=== PATIENT | female | born 2005 | race Caucasian/White ===

== ENCOUNTER 2023-02-10 17:49 | Emergency (ER) | payer SELFPAY ==
[2023-02-10 17:55] VITALS: BP 107/68; PULSE 109; TEMP 37.1; O2SAT 96; BMI 19.0
[2023-02-10 18:48] LABS: Basophils % 0.3 %; Eosinophils % 0.3 %; Hematocrit 34.7 % (36-47); Lymphocytes % 33.8 %; Mean Corpuscular HGB Conc 35.4 g/dL (30-55); Mean Corpuscular Hemoglobin 36.5 pg (27-33); Mean Platelet Volume 9.5 fL (7.4-10.4); Monocytes % 8.7 %; Neutrophils % 56.2 %; Nucleated Red Blood Cells % 0 %; Platelet Count 270 10^3/cmm (157-399); Red Blood Count 3.37 10^6/uL (3.85-5.65); Red Cell Distribution Width 21.2 % (12.1-15.1); White Blood Count 11.76 10^3/uL (4.5-13.0)
[2023-02-10 19:11] LABS: HCG, Serum Qual Negative (Negative)
[2023-02-10 19:17] LABS: Alanine Aminotransferase 156 U/L (0-33); Albumin Level 4.5 g/dL (3.5-5.2); Alkaline Phosphatase 144 U/L (35-105); Anion Gap 18.1 (5-19); Aspartate Amino Transferase 129 U/L (0-32); Blood Urea Nitrogen 14 mg/dL (6-20); Calcium 9.3 mg/dL (8.5-10.5); Carbon Dioxide 25 mmol/L (22-29); Chloride 99 mmol/L (98-107); Creatinine Clr Calc Pharmacy 124.5211; Globulin 3.6 g/dL (1.3-4.6); Glomerular Filtration Rate 107.8 mL/min (90-130); Glucose 114 mg/dL (65-115); Lipase 33 U/L (13-60); Osmolality Calculated 287 mOsm/kg (285-295); Potassium 4.1 mmol/L (3.5-5.1); Sodium 138 mmol/L (136-145); Total Bilirubin 1.3 mg/dL (0.15-1.2); Total Protein 8.1 g/dL (6.6-8.7)
--- NOTE | 2023-02-10 19:59 | W.ED.FEMALGU ---
HPI - Female Genitourinary General: Chief complaint: Urogenital-Female Stated complaint: urine orange/ pain, N/V Time Seen by Provider: 02/10/23 19:44 Source: patient Mode of arrival: ambulatory Limitations: no limitations History of Present Illness: 17-year-old female states over the last 4 to 5 days she been having some lower abdominal pain that has been sharp in nature she is also had dysuria along with discolored urine. She denies any fevers denies any upper abdominal pain. She denies diarrhea or vomiting. Associated symptoms: Reports abdominal pain; Deny headache(s) or nausea Review of Systems Const: Denies: fever(s), chills, body aches or change in appetite ENMT: Denies: throat pain or dental pain Card: Denies: chest pain Resp: Denies: dyspnea GI: Reports: abdominal pain; Denies: nausea, vomiting or diarrhea : Reports: dysuria Musc: Denies: neck pain or back pain Skin/Breast: Denies: rash Neuro: Denies: headache(s) Physical Exam Const: COMMON NORMALS: no acute distress, patient oriented x3 and healthy appearing HENMT: COMMON NORMALS: normocephalic and atraumatic HEAD & SCALP: normocephalic and atraumatic Eye: COMMON NORMALS: conjunctivae normal CONJUNCTIVA: Yes conjunctivae normal Neck/C-Spine: COMMON NORMALS: full ROM and supple Chest: COMMONS NORMALS: normal inspection of the chest Resp: COMMON NORMALS: normal respiratory effort Cardio: COMMON NORMALS: regular rate, regular rhythm and No murmurs present (Cardio) RATE: regular rate RHYTHM: regular rhythm GI: COMMON NORMALS: Normal to inspection, nondistended, normoactive bowel sounds present, Soft to palpation, non-tender and no masses PALPATION: Yes Soft to palpation Extremity: COMMON NORMALS: normal to inspection and full ROM Neuro: COMMON NORMALS: patient oriented x3, moves all extremities and no focal motor deficits Psych: COMMON NORMALS: mental status grossly normal, Normal thought process present and cooperative THOUGHT PROCESS: Normal thought process present Skin: COMMON NORMALS: no rashes or lesions noted and no wounds GENERAL SKIN EXAM: no rashes or lesions noted Course Vital Signs: Vital signs: Vital Signs Temperature 98.7 F 02/10/23 17:55 Pulse Rate 87 02/10/23 21:38 Blood Pressure 121/76 02/10/23 21:38 Pulse Oximetry 96 02/10/23 21:38 Oxygen Delivery Me thod Room Air 02/10/23 21:38 MDM - Female Medical Decision Making Patient presents here with lower abdominal pain dysuria likely UTI she has no signs of PID or appendicitis. Patient's white count here is normal she is nontoxic-appearing we will start her on antibiotics she is follow-up PCP and return if worsening. Medical Records I reviewed the patient's medical records. Lab Data I reviewed the patient's lab results. 02/10/23 18:23 02/10/23 18:23 Radiology Impressions Abdomen/Pelvis CT 02/10/23 20:25 IMPRESSION: No acute abnormality identified to explain patient's pain. In particular, a normal appendix is confirmed and there is no urolithiasis or bowel obstruction. COMMENTS: Consistent with the [place] [employer]'s Incidental Findings Committee white paper (J Am Shayla Radiol 2018): Any incidental renal lesion less than 1 cm or classified as too small to characterize, or any incidental cystic renal lesion characterized as simple-appearing, is likely benign. No follow-up imaging is recommended for these lesions per consensus recommendations based on imaging criteria. Laboratory Results WBC 11.76 10^3/uL (4.5-13.0) 02/10/23 18: RBC 3.37 10^6/uL (3.85-5.65) L 02/10/23 18:23 Hgb 12.30 g/dL (12.4-14.8) L 02/10/23 18: Hct 34.7 % (36-47) L 02/10/23 18: MCV 103.0 fl (85-98) H 02/10/23 18: MCH 36.5 pg (27-33) H 02/10/23 18: MCHC 35.4 g/dL (30-55) 02/10/23 18: RDW 21.2 % (12.1-15.1) H 02/10/23 18: Plt Count 270 10^3/cmm (157-399) 02/10/23 18: MPV 9.5 fL (7.4-10.4) 02/10/23 18: Neut % (Auto) 56.2 % 02/10/23 18:23 Lymph % (Auto) 33.8 % 02/10/23 18:23 [place] % (Auto) 8.7 % 02/10/23 18: Eos % (Auto) 0.3 % 02/10/23 18: Baso % (Auto) 0.3 % 02/10/23 18: Neut # (Auto) 6.60 10^3/uL (1.8-8.0) 02/10/23 18: Lymph # (Auto) 4.0 10^3/uL (1.5-6.5) 02/10/23 18: [place] # (Auto) 1.0 10^3/uL (0.2-0.9) H 02/10/23 18: Eos # (Auto) 0.0 10^3/uL (0.0-0.8) 02/10/23 18: Baso # (Auto) 0.0 10^3/uL (0.0-0.1) 02/10/23 18: Nucleated RBC % (auto) 0 % 02/10/23 18: Nucleated RBCs # 0.0 /100WBC 02/10/23 18:23 Sodium 138 mmol/L (136-145) 02/10/23 18: Potassium 4.1 mmol/L (3.5-5.1) 02/10/23 18: Chloride 99 mmol/L (98-107) 02/10/23 18: Carbon Dioxide 25 mmol/L (22-29) 02/10/23 18: Anion Gap 18.1 (5-19) 02/10/23 18: BUN 14 mg/dL (6-20) 02/10/23 18:23 Creatinine 0.7 mg/dL (0.5-0.9) 02/10/23 18:23 GFR Calculation 107.8 mL/min (90-130) 02/10/23 18: Glucose 114 mg/dL (65-115) 02/10/23 18:23 Calculated Osmolality 287 mOsm/kg (285-295) 02/10/23 18:23 Calcium 9.3 mg/dL (8.5-10.5) 02/10/23 18:23 Total Bilirubin 1.3 mg/dL (0.15-1.2) H 02/10/23 18:23 AST 129 U/L (0-32) H 02/10/23 18:23 ALT 156 U/L (0-33) H 02/10/23 18:23 Alkaline Phosphatase 144 U/L (35-105) H 02/10/23 18:23 Total Protein 8.1 g/dL (6.6-8.7) 02/10/23 18: Albumin 4.5 g/dL (3.5-5.2) 02/10/23 18: Globulin 3.6 g/dL (1.3-4.6) 02/10/23 18: Lipase 33 U/L (13-60) 02/10/23 18:23 HCG, Qual Negative (Negative) 02/10/23 18:23 Urine Color [place] (Yellow) 02/10/23 19:52 Urine Appearance Cloudy (CLEAR) A 02/10/23 19:52 Urine pH 8 (5-7) H 02/10/23 19:52 Ur Specific [place] 1.015 (1.005-1.030) 02/10/23 19:52 Urine Protein 1+ (Negative) H 02/10/23 19:52 Urine Glucose (UA) Norm (Normal) 02/10/23 19:52 Urine Ketones Negative (Negative) 02/10/23 19:52 Urine Blood 3+ (Negative) H 02/10/23 19:52 Urine Nitrate Negative (Negative) 02/10/23 19:52 Urine Bilirubin 1+ (Negative) H 02/10/23 19:52 Prot Sulfosalicylic Acd Positive (Negative) 02/10/23 19:52 Urine Urobilinogen 4+ mg/dL (Negative) H 02/10/23 19:52 Ur Leukocyte Esterase 2+ (Negative) H 02/10/23 19:52 Urine RBC Too numerous to cnt /hpf (0-2) H 02/10/23 19:52 Urine WBC 55-80 /hpf (0-5) H 02/10/23 19:52 Ur Squamous Epith Cells 0-4 /hpf (0-5) H 02/10/23 19:52 Amorphous Sediment 3+ /hpf 02/10/23 19:52 Urine Bacteria 1+ /hpf (NONE) H 02/10/23 19:52 All radiology interpretation(s) finalized by discharge Discharge Plan Discharge Patient Disposition: Home Clinical Impression: Urinary tract infection Qualifiers: Urinary tract infection type: site unspecified Condition: Stable Prescriptions: New cephalexin 500 mg capsule 500 mg PO TID 7 Days Qty: 21 0RF Discharge Orders: Discharge ED (Routine); Ordered 02/10/23 Ordered By: Norbert Infante Referrals: Bernard Kennedy FNP [Primary Care Provider] - Discharge Diet: Advance as tolerated Discharge Activity: Resume usual activity Patient Instructions: Urinary Tract Infection in Women (ED) Coding Level of Care Code ED Operating Room Registered Nurse for Osiel Phillips
[2023-02-10] MEDS: ketorolac 30 mg/mL INJ IVP (20:11)
[2023-02-10] MEDS: ondansetron 2 mg/ML SDV 2 mL 4 MG IVP (20:11)
[2023-02-10] MEDS: sodium chloride 0.9% 1,000 ML 999 ML IV (20:11)
--- NOTE | 2023-02-10 20:25 | CTR_ITS ---
PROCEDURE INFORMATION: Exam: CT Abdomen And Pelvis With Contrast Exam date and time: 02/10/2023 9:31 PM Age: 17 years old Clinical indication: Nausea and vomiting; Abdominal pain; Generalized; Additional info: Abd pain TECHNIQUE: Imaging protocol: Computed tomography of the abdomen and pelvis with contrast. Radiation optimization: All CT scans at this facility use at least one of these dose optimization techniques: automated exposure control; mA and/or kV adjustment per patient size (includes targeted exams where dose is matched to clinical indication); or iterative reconstruction. Contrast material: OMNI 350; Contrast volume: 100 ml; Contrast route: INTRAVENOUS (IV); REPORTING DATA: Count of CT and Cardiac NM exams in prior 12 months: This patient has received 0 known CTs and 0 known cardiac nuclear medicine studies in the 12 months prior to the current study. COMPARISON: No relevant prior studies available. RADIATION DOSE METRICS: Total DLP (mGy-cm): 273 FINDINGS: Lungs: Clear basilar lung parenchyma. Pleural spaces: No pleural fluid. Heart: Normal heart size. Liver: Normal configuration. Homogeneous parenchyma. Gallbladder and bile ducts: Postprandial gallbladder is contracted. Pancreas: Normal. No ductal dilation. Spleen: Normal. No splenomegaly. Adrenal glands: Normal configuration. Kidneys and ureters: Kidneys enhance symmetrically and demonstrate no evidence of mass, calculus, obstruction, or inflammation. Small cyst upper pole left kidney. Stomach and bowel: No obstruction. No mural thickening. Appendix: Normal appendix is confirmed. Intraperitoneal space: No free air. No significant fluid collection. Vasculature: Normal caliber arterial structures. Lymph nodes: No enlarged lymph nodes. Urinary bladder: Unremarkable as visualized. Reproductive: Physiologic appearance for age. Bones/joints: No fracture or destructive lesion. Soft tissues: Unremarkable. CT/CT abdomen pelvis w con* [id number] IMPRESSION: No acute abnormality identified to explain patient's pain. In particular, a normal appendix is confirmed and there is no urolithiasis or bowel obstruction. COMMENTS: Consistent with the [place] [employer]'s Incidental Findings Committee white paper (J Am Shayla Radiol 2018): Any incidental renal lesion less than 1 cm or classified as too small to characterize, or any incidental cystic renal lesion characterized as simple-appearing, is likely benign. No follow-up imaging is recommended for these lesions per consensus recommendations based on imaging criteria.
[2023-02-10 20:52] LABS: Urine Color Amber (Yellow)
[2023-02-10 20:53] LABS: Add Urine Microscopic? YES; Bilirubin Urine 1+ (Negative); Blood Urine 3+ (Negative); Glucose Urine UA Norm (Normal); Ketones Urine Negative (Negative); Leukocyte Esterase Urine 2+ (Negative); Nitrate Urine Negative (Negative); Protein Urine 1+ (Negative); Specific Gravity, Urine 1.015 (1.005-1.030); Sulfosalicylic Acid Urine Positive (Negative); Urine Appearance Cloudy (CLEAR); Urobilinogen Urine 4+ mg/dL (Negative); pH Urine 8 (5-7)
[2023-02-10 20:55] LABS: Amorphous Sediment Urine 3+ /hpf; Bacteria Urine 1+ /hpf; RBC Urine TOO NUMEROUS TO CNT /hpf (0-2); Squamous Epithelial Cell Urine 0-4 /hpf (0-5); WBC Urine 55-80 /hpf (0-5)
[2023-02-10 20:56] LABS: Add Urine Culture? Yes
[2023-02-10] MEDS: cefTRIAXone 1,000 MG in sodium chloride 0.9% (plus) 50 ML 100 MG IV (21:06)
[2023-02-10] MEDS: iohexol 350 mg/mL 500 mL Btl (per mL) IV (21:35)
[2023-02-10 21:38] VITALS: BP 121/76; PULSE 87; O2SAT 96
== END 2023-02-10 22:31 | disposition home or self-care (01) ==
PROVIDERS: Emergency Provider Emergency Medicine; PCP Nurse Practitioner Family
DX: N39.0 Urinary tract infection, site not specified (principal)
CPT/HCPCS: 36415; 74177; 80053; 81001; 83690; 84703; 85025; 87077; 87086; 87186; 96374; 96375; 99285; J0696; J1885; J2405; J7030; Q9967

== ENCOUNTER 2023-06-23 07:12 | Observation (INO) | payer SELFPAY ==
[2023-06-23] VITALS (18 sets, daily range): BP systolic 96–133; BP diastolic 52–95; PULSE 70–160; RESP 11–40; TEMP 36.6–37.1; O2SAT 95–100; BMI 19.8; BMI 22.1
--- NOTE | 2023-06-23 07:22 | ECG_ITS ---
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 Measurements Intervals [place] Rate: 156 P: 0 IN: 0 QRS: 89 QRSD: 74 T: -3 QT: 258 QTc: 416 Interpretive Statements ATRIAL FIBRILLATION WITH RAPID VENTRICULAR RESPONSE NONSPECIFIC ST & T-WAVE ABNORMALITY No previous ECG available for comparison Electronically Signed On 06-23-2023 17:12:52 CDT by Jem John M.D. [id number]
--- NOTE | 2023-06-23 07:24 | ED_ITS ---
HPI - Arrhythmia/Palpitations 2 General: Chief Complaint: Arrhythmia/Palpitations Stated Complaint: n,v, fast heart rate Time Seen by Provider: 06/23/23 07:18 Source: patient Mode of arrival: ambulatory Limitations: no limitations History of Present Illness: 18-year-old female states she been havin g palpitations over the last 2 days got much worse this morning. States she felt like her hearts been racing she states this caused her to be lightheaded and vomit. She denies any chest pain denies any shortness of breath. She denies any supplement use or excessive caffeine intake. Associated symptoms: Reports nausea and vomiting Review of Systems 2 Const: Denies: fever(s), chills, body aches or change in appetite Eyes: Denies: blurry vision or eye discomfort ENMT: Denies: throat pain or dental pain Card: Reports: palpitations and irregular heart rhythm; Denies: chest pain Resp: Denies: dyspnea GI: Reports: nausea and vomiting; Denies: abdominal pain or diarrhea Musc: Denies: neck pain or back pain Skin/Breast: Denies: rash Neuro: Denies: headache(s) Physical Exam 2 Const: COMMON NORMALS: patient oriented x3 HENMT: COMMON NORMALS: normocephalic and atraumatic HEAD & SCALP: n ormocephalic and atraumatic Eye: COMMON NORMALS: Equal, round and reactive pupils present and EOMs intact bilaterally PUPIL: Yes Equal, round and reactive pupils present Neck/C-Spine: COMMON NORMALS: full ROM and supple Chest: COMMONS NORMALS: normal inspection of the chest Resp: COMMON NORMALS: normal respiratory effort, No retractions, No use of accessory muscles and clear to auscultation bilaterally AUSCULTATION: clear to auscultation bilaterally Cardio: COMMON NORMALS: No murmurs present (Cardio) RATE: tachycardic R HYTHM: abnormal rhythm irregularly irregular GI: COMMON NORMALS: Normal to inspection, nondistended, normoactive bowel sounds present, Soft to palpation, non-tender and no masses PALPATION: Yes Soft to palpation Extremity: COMMON NORMALS: normal to inspection and full ROM Neuro: COMMON NORMALS: patient oriented x3, moves all extremities and no focal motor deficits Psych: COMMON NORMALS: mental status grossly normal, Normal thought process present and cooperative THOUGHT PROCESS: Normal thought process present Skin: COMMON NORMALS: no rashes or lesions noted and no wounds GENERAL SKIN EXAM: no rashes or lesions noted Course 2 Vital Signs: Vital signs: Vital Signs Pulse Rate 160 H 06/23/23 08:07 Respiratory Rate 24 H 06/23/23 08:07 Blood Pressure 118/95 06/23/23 08:07 Pulse Oximetry 100 06/23/23 08:07 Oxygen Delivery Me thod Room Air 06/23/23 07:16 MDM - Arrhythmia/Palpitations Medical Decision Making Patient presents here with A-fib with RVR did start on Cardizem drip. D-dimer is negative no signs of PE TSH is normal she denies excessive caffeine abuse will admit to the hospital spoke to cardiology who is consulted Medical Records I reviewed the patient's medical records. Lab Data I reviewed the patient's lab results. 06/23/23 07:20 06/23/23 07:20 Laboratory Results WBC 10.16 10^3/uL (4.5-13.0) 06/23/23 07:20 RBC 4.89 10^6/uL (3.85-5.65) 06/23/23 07:20 Hgb 14.00 g/dL (12.4-14.8) 06/23/23 07:20 Hct 42.5 % (36-47) 06/23/23 07:20 MCV 86.9 fl (85-98) 06/23/23 07:20 MCH 28.6 pg (27-33) 06/23/23 07:20 MCHC 32.9 g/dL (30-55) 06/23/23 07:20 RDW 13.5 % (12.1-15.1) 06/23/23 07:20 Plt Count 296 10^3/cmm (157-399) 06/23/23 07:20 MPV 9.7 fL (7.4-10.4) 06/23/23 07:20 Neut % (Auto) 63.8 % 06/23/23 07:20 Lymph % (Auto) 28.5 % 06/23/23 07:20 [place] % (Auto) 6.3 % 06/23/23 07:20 Eos % (Auto) 0.8 % 06/23/23 07:20 Baso % (Auto) 0.3 % 06/23/23 07:20 Neut # (Auto) 6.48 10^3/uL (1.8-8.0) 06/23/23 07:20 Lymph # (Auto) 2.9 10^3/uL (1.5-6.5) 06/23/23 07:20 [place] # (Auto) 0.6 10^3/uL (0.2-0.9) 06/23/23 07:20 Eos # (Auto) 0.1 10^3/uL (0.0-0.8) 06/23/23 07:20 Baso # (Auto) 0.0 10^3/uL (0.0-0.1) 06/23/23 07:20 Nucleated RBC % (auto) 0 % 06/23/23 07:20 Nucleated RBCs # 0.0 /100WBC 06/23/23 07:20 D-Dimer <= 0.27 ug/mLFEU (0-0.59) 06/23/23 07:20 Sodium 138 mmol/L (136-145) 06/23/23 07:20 Potassium 4.0 mmol/L (3.5-5.1) 06/23/23 07:20 Chloride 102 mmol/L (98-107) 06/23/23 07:20 Carbon Dioxide 25 mmol/L (22-29) 06/23/23 07:20 Anion Gap 15.0 (5-19) 06/23/23 07:20 BUN 8 mg/dL (6-20) 06/23/23 07:20 Creatinine 0.6 mg/dL (0.5-0.9) 06/23/23 07:20 GFR Calculation 127.5 mL/min (90-130) 06/23/23 07:20 Glucose 108 mg/dL (65-115) 06/23/23 07:20 Calculated Osmolality 285 mOsm/kg (285-295) 06/23/23 07:20 Calcium 9.4 mg/dL (8.5-10.5) 06/23/23 07:20 Total Bilirubin 0.4 mg/dL (0.15-1.2) 06/23/23 07:20 AST 15 U/L (0-32) 06/23/23 07:20 ALT 12 U/L (0-33) 06/23/23 07:20 Alkaline Phosphatase 86 U/L (35-105) 06/23/23 07:20 Total Protein 7.8 g/dL (6.6-8.7) 06/23/23 07:20 Albumin 4.3 g/dL (3.5-5.2) 06/23/23 07:20 Globulin 3.5 g/dL (1.3-4.6) 06/23/23 07:20 Lipase 27 U/L (13-60) 06/23/23 07:20 TSH 1.17 uIU/mL (0.27-4.20) 06/23/23 07:20 HCG, Qual Negative (Negative) 06/23/23 07:20 All radiology interpretation(s) finalized by discharge EKG Data EKG 1: I personally reviewed and interpreted this EKG as follows: EKG interpretation date: 06/23/23 EKG interpretation time: 07:22 Interpretation: afib with rvr hr [address] elevation qrs 74 qtc 346 EKG 2: I personally reviewed and interpreted this EKG as follows: EKG interpretation date: 06/23/23 EKG interpretation time: 07:46 Interpretation: afib hr [address] or t wave abnormalities qrs 77 qtc 372 Critical Care Time 2 Critical Care Time: Critical Care Time: Yes Total Critical Care Time: 40 Attestation: The high probability of a clinically significant, sudden or life threatening deterioration of the patient's cv system(s) required my full and direct attention, intervention and personal management. The critical care time is as shown. This time is in addition to time spent performing any reported procedures but includes the following: [x] Data and vital sign review and interpretation [x] Patient assessment, examination and intervention [x] Documentation [x] Medication orders and management Discharge Plan Discharge Patient Disposition: Admitted As Inpatient Clinical Impression: Atrial fibrillation with RVR Condition: Stable Prescriptions: No Action No Known Home Medications Referrals: Bernard Kennedy FNP [Primary Care Provider] - Coding Level of Care Code ED Blueprint Cutter for Osiel Phillips
[2023-06-23] MEDS: dilTIAZem 5 mg/mL SDV 5 mL 15 MG IVP (07:32)
[2023-06-23] MEDS: sodium chloride 0.9% 1,000 ML 999 ML IV (07:35)
[2023-06-23 07:40] LABS: Basophils % 0.3 %; Eosinophils # 0.1 10^3/uL (0.0-0.8); Eosinophils % 0.8 %; Hematocrit 42.5 % (36-47); Lymphocytes # 2.9 10^3/uL (1.5-6.5); Lymphocytes % 28.5 %; Mean Corpuscular HGB Conc 32.9 g/dL (30-55); Mean Corpuscular Hemoglobin 28.6 pg (27-33); Mean Corpuscular Volume 86.9 fl (85-98); Mean Platelet Volume 9.7 fL (7.4-10.4); Monocytes # 0.6 10^3/uL (0.2-0.9); Monocytes % 6.3 %; Neutrophils # 6.48 10^3/uL (1.8-8.0); Neutrophils % 63.8 %; Nucleated Red Blood Cells % 0 %; Platelet Count 296 10^3/cmm (157-399); Red Blood Count 4.89 10^6/uL (3.85-5.65); Red Cell Distribution Width 13.5 % (12.1-15.1); White Blood Count 10.16 10^3/uL (4.5-13.0)
--- NOTE | 2023-06-23 07:46 | ECG_ITS ---
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 Measurements Intervals [place] Rate: 93 P: 0 PA: 0 QRS: 87 QRSD: 77 T: 35 QT: 321 QTc: 400 Interpretive Statements ATRIAL FIBRILLATION NONSPECIFIC T-WAVE ABNORMALITY Compared to ECG 06/23/2023 07:22:43 No significant changes Electronically Signed On 06-23-2023 17:12:42 CDT by Jem John M.D. [email or web address] [email or web address] [email or web address] van [email or web address] [email or web address]/[email or web address]/NU/[id number] f
[2023-06-23 07:52] LABS: D Dimer <= 0.27 ug/mLFEU (0-0.59)
[2023-06-23 08:04] LABS: HCG, Serum Qual Negative (Negative)
[2023-06-23 08:06] LABS: Alanine Aminotransferase 12 U/L (0-33); Albumin Level 4.3 g/dL (3.5-5.2); Alkaline Phosphatase 86 U/L (35-105); Blood Urea Nitrogen 8 mg/dL (6-20); Calcium 9.4 mg/dL (8.5-10.5); Carbon Dioxide 25 mmol/L (22-29); Chloride 102 mmol/L (98-107); Creatinine Clr Calc Pharmacy 146.2161; Globulin 3.5 g/dL (1.3-4.6); Glomerular Filtration Rate 127.5 mL/min (90-130); Glucose 108 mg/dL (65-115); Lipase 27 U/L (13-60); Osmolality Calculated 285 mOsm/kg (285-295); Sodium 138 mmol/L (136-145); Thyroid Stimulating Hormone 1.17 uIU/mL (0.27-4.20); Total Bilirubin 0.4 mg/dL (0.15-1.2); Total Protein 7.8 g/dL (6.6-8.7)
[2023-06-23] MEDS: dilTIAZem 100 MG in sodium chloride 0.9% (add-van) 100 ML 10 MG IV (08:11)
--- NOTE | 2023-06-23 08:11 | USCV_ITS ---
Raffaele Pascual Age: 18 Gender: F : 2005 Exam Date: 06/23/2023 15:45 Ordering Phys: Norbert Infante MD Technologist: Exam Location[place] [facility] [place] Indication: tach BP: 117 / 75 HR: 90 Rhythm: Sinus Technical Quality: Adequate MEASUREMENTS (Male / Female) Normal Values 2D ECHO LV Diastolic Diameter PLAX 3.7 cm 4.2 - 5.9 / 3.9 - 5.3 cm IVS Diastolic Thickness 1.0 cm 0.6 - 1.0 / 0.6 - 0.9 cm IVS Systolic Thickness 1.2 cm LVPW Diastolic Thickness 1.0 cm 0.6 - 1.0 / 0.6 - 0.9 cm LVPW Systolic Thickness 1.6 cm LVOT Diameter 1.3 cm LV Ejection Fraction 2D Teich 63.8 % LV Ejection Fraction MOD 2C 49.5 % LV Ejection Fraction 2C AL 49.7 % LA Diameter 3.1 cm RA Systolic Volume 4C AL 22.6 ml RA Systolic Volume 4C MOD 21.8 ml LA Sys Volume AL 39.0 cm cubed LA Sys Volume Index AL 23.9 cm cubed/m squared M-MODE LA Ao Ratio MM 1.1 AV Cusp Separation MM 1.8 cm DOPPLER AV Peak Velocity 111.0 cm/s LVOT Peak Velocity 102.0 cm/s AV Area Cont Eq vti 1.5 cm squared AV Area Cont Eq pk 1.3 cm squared MV Peak Velocity 82.0 cm/s MV Area PHT 5.4 cm squared Mitral E to A Ratio 1.7 TV Peak Velocity 173.0 cm/s TR Peak Velocity 192.0 cm/s TR Peak Gradient 14.7 mmHg TV Peak E Velocity 93.0 cm/s Right Atrial Pressure 3.0 mmHg Pulmonary Artery Systolic Pressu 17.7 mmHg PV Peak Velocity 104.0 cm/s FINDINGS Left Ventricle Left ventricle is normal in size. LV systolic function is normal with EF of 55-60%. No regional wall motion abnormalities are seen. Diastolic function is normal Right Ventricle Normal size and function Right Atrium Normal in size Left Atrium Normal in size Mitral Valve Structurally normal mitral valve. Mild mitral regurgitation. Aortic Valve Structurally normal aortic valve. No significant stenosis or regurgitation. Tricuspid Valve Insufficient TR jet to calculate RVSP Pulmonic Valve Not well visualized Pericardium Normal Aorta Normal in size IVC Appears to be normal CONCLUSIONS LV systolic function is normal with EF of 55-60% Diastolic function is normal Mild mitral regurgitation No comparison studies are available. Jem John MD (Electronically Signed) Final Date: 24 Jun 2023 07:59 S
--- NOTE | 2023-06-23 08:13 | PC.NURSE ---
Pt HR 160s on start on Cardizem drip, per Dr. Infante to start drip at 10mg/hr
[2023-06-23 08:20] LABS: Aspartate Amino Transferase 15 U/L (0-32)
[2023-06-23 08:32] LABS: Magnesium 1.9 mg/dL (1.7-2.3)
--- NOTE | 2023-06-23 09:01 | P.HP_ITS ---
Documented by User: PRESTON Bryant STDNT 06/23/23 09:31 Providers/Chief Complaint 2 Admitting Physician: Dr. Duane Shirley MD Primary Care Provider: ADOLFO Monzon Chief Complaint: n,v, fast heart rate History of Present Illness Raffaele Pascual is a 18 year old female to the ED today with a 1 day history of chest discomfort and heart palpitations along with nausea and vomiting. She reports her symptoms started approximately 11 PM last night, she started to feel some chest discomfort and palpitations, some shortness of breath, nausea and 2 episodes of vomiting, and some blurry vision for short period of time. She reports she has had episodes like this in the past when she was 12 and 15 years old. At the age of 12 she was given a monitor, there were no results from that and she was not started on any long-term medications. At 15 she had another episode, and once again was not started on any long-term medications. She reports intermittently over the years she has had 4-5 episodes per month, which involve some chest discomfort and palpitations but not symptoms like this particular event. Patient has a history of previous episodes of chest discomfort and possible intermittent A-fib in the past otherwise clear. No surgical history. Diltiazem 15 mg, IV push, once in the ER. Rate was reduced, but rebounded back to A-fib with RVR. Diltiazem drip started in the ER. Review of Systems 2 General: Reports: 10 or more systems reviewed and unremarkable except in HPI and below Narrative: Negative except as noted above Eyes: Reports: blurry vision Card: Reports: palpitations, irregular heart rhythm and lightheadedness Resp: Reports: dyspnea GI: Reports: nausea and vomiting Medications/Allergies Home Medications Medication Instructions Recorded Confirmed Last Taken Type No Known Home Medications 06/23/23 06/23/23 Unknown History Allergies Allergy/AdvReac Type Severity Reaction Status Date / Time No Known Allergies Allergy Verified 02/10/23 18:00 PFSH Acute 2 PFSH: Social History Smoking and tobacco/nicotine status: never used tobacco/nicotine Alcohol intake: current Alcohol intake frequency: few times a month Alcohol use comment: 1-2 drinks, socially Substance/Drug Use: former Date of last use: May 30, 2023 Former substance use details: Marijuana - Gummy Lives independently: Yes Household members: friend(s) Housing: Apartment Number of children: 0 Female Reproductive History: Date of last menstrual period: 06/17/23 control method: none : 0 Para: 0 Other female reproductive history: Reports she is not currently sexually active. Reports no control. Other PFSH information: Supplemental PFSH Information: She reports he drinks 1-2 drinks socially throughout the month. However, she reports she had been drinking more in the past, and has cut down because she thought it was excessive. She reports she lives at home with a friend, safe environment. Vitals/I&O/Wt Last Vital Signs Pulse 145 H 06/23/23 08:51 Resp 24 H 06/23/23 08:51 BP 118/95 06/23/23 08:51 Pulse Ox 100 06/23/23 08:51 O2 Del Method Room Air 06/23/23 07:16 06/22/23 06/23/23 06/23/23 22:59 06:59 14:59 Intake Total 3.833 / 3.833 Balance 3.833 / 3.833 Weight last 48 hrs Weight 130 lb Physical Exam 2 Narrative: General: Comfortable feeling female, resting in [facility]. Neuro: Alert and oriented, conversing appropriately. HEENT: Head atraumatic, normocephalic, PERRL, neck supple no thyromegaly noted. CV: Irregular rate and rhythm, S1-S2 noted, no murmurs rubs or gallops noted. Pulm: Lungs clear to auscultation bilaterally, symmetric chest rise. GI: Abdomen soft, nontender, bowel sounds active in all quadrants. : Deferred?patient has no concerns. Extremities: Distal pulses intact in upper and lower extremities bilaterally. Capillary<2 seconds. No edema or swelling noted. Data 06/23/23 07:20 06/23/23 07:20 Other Labs: CT: Personally reviewed, grossly normal, no acute pathology is noted. Lipase: 27 normal TSH: 1.17 normal Beta-hCG: Negative UDS: Ordered?pending. Initial EKG: Personally reviewed, shows A-fib with RVR, rate around 140-160. Follow-up EKG: Personally reviewed, shows atrial fibrillation, rate less than 100. A&P Assessment and plan (1) Atrial fibrillation with RVR: Patient presented to ED today with approximately 1 day onset of A-fib with RVR. She reports she had had some blurry vision, chest discomfort, palpitations, shortness of breath, nausea and 2 episodes of vomiting throughout the night. She reports she has had history of similar episodes in the past, at the age of 12 and at the age of 15. During her first episode at the age of 12, she was given a mobile monitor for 3 days, but revealed no significant results, she was not on any medication at this time. At the age of 15 she had another similar episode, once again no long-term medication therapy was started. Will admit patient observation status, and consult cardiology for follow-up. ? Admit patient to observation. ? Consult cardiology and obtain echocardiogram. ? Diltiazem drip started in the ER-continue ? Start patient on ASA 81 mg, p.o. daily. ? Consider metoprolol 12.5 mg, p.o., twice daily?rate control ? Daily CBC/CMP, and magnesium ordered. ? UDS ordered: Pending. ? Cardiac diet. Plan Patient is young, ambulation, SCDs, daily ASA should suffice for DVT prophylaxis. No objections to blood products. Full code. Attestations 2 Medical Necessity Statement*: Patient will need greater than 1 midnight stay status for and treat A-fib with RVR. Coding Level of Care Code 24672 Diagnoses Atrial fibrillation with RVR I48.91 Time Spent (min) 57 Documented by User: Duane Shirley MD 06/23/23 10:00 Providers/Chief Complaint 2 Chief Complaint: n,v, fast heart rate History of Present Illness Raffaele Pascual is a 18 year old female to the ED today with a 1 day history of heart palpitations along with nausea and vomiting. She reports her symptoms started approximately 11 PM last night, she started to feel some palpitations, some shortness of breath, nausea and 2 episodes of vomiting, and some blurry vision for short period of time. She reports she has had episodes like this in the past when she was 12 and 15 years old. At the age of 12 she was given a monitor, there were no results from that and she was not started on any long- term medications. At 15 she had another episode, and once again was not started on any long-term medications. She reports intermittently over the years she has had 4-5 episodes per month, which involve some palpitations but not symptoms like this particular event. ER visit for syncope, no etiology found. No significant past medical history other than above. No surgical history. Diltiazem 15 mg, IV push, once in the ER. Rate was reduced, but rebounded back to A-fib with RVR. Diltiazem drip started in the ER. Medications/Allergies Home Medications Medication Instructions Recorded Confirmed Last Taken Type No Known Home Medications 06/23/23 06/23/23 Unknown History Allergies Allergy/AdvReac Type Severity Reaction Status Date / Time No Known Allergies Allergy Verified 02/10/23 18:00 PFSH Acute 2 PFSH: Social History Smoking and tobacco/nicotine status: never used tobacco/nicotine Alcohol intake: current Alcohol intake frequency: few times a month Alcohol use comment: 1-2 drinks, socially Substance/Drug Use: former Date of last use: May 30, 2023 Former substance use details: Marijuana - Gummy Lives independently: Yes Household members: friend(s) Housing: Apartment Number of children: 0 Physical Exam 2 Narrative: General: No distress Neuro: Alert and oriented, conversing appropriately. HEENT: Head atraumatic, normocephalic, PERRL, neck supple no thyromegaly noted. CV: Irregular irregular tachycardic rhythm, S1-S2 noted, no murmurs rubs or gallops noted. Pulm: Lungs clear to auscultation bilaterally, symmetric chest rise. GI: Abdomen soft, nontender, bowel sounds active in all quadrants. : Deferred?patient has no concerns. Extremities: Distal pulses intact in upper and lower extremities bilaterally. Capillary<2 seconds. No edema or swelling noted. Data 06/23/23 07:20 06/23/23 07:20 Other Labs: CT: Personally reviewed, grossly normal, no acute pathology is noted. Lipase: 27 normal TSH: 1.17 normal Beta-hCG: Negative magnesium normal UDS: Ordered?pending. Urinalysis pending Initial EKG: Personally reviewed, shows A-fib with RVR, rate around 140-160. Follow-up EKG: Personally reviewed, shows atrial fibrillation, rate less than 100. A&P Assessment and plan (1) Atrial fibrillation with RVR: Patient presented to ED today with approximately 1 day onset of A-fib with RVR. She reports she had had some blurry vision, chest discomfort, palpitations, shortness of breath, nausea and 2 episodes of vomiting throughout the night. She reports she has had history of similar episodes in the past, at the age of 12 and at the age of 15. During her first episode at the age of 12, she was given a mobile monitor for 3 days, but revealed no significant results, she was not on any medication at this time. At the age of 15 she had another similar episode, once again no long-term medication therapy was started. Will admit patient observation status, and consult cardiology for follow-up. ? Admit patient to observation. ? Consult cardiology and obtain echocardiogram. TSH and magnesium level were checked and normal Obtain chest x-ray ? Diltiazem drip started in the ER-continue ? Start patient on ASA 81 mg, p.o. daily. ? Metoprolol 12.5 mg now once, then 25 mg twice daily ? Daily CBC/CMP, and magnesium ordered. ? UDS ordered: Pending. ? Cardiac diet. [id number] score low currently. Only placed on aspirin 81 mg daily Diagnoses Atrial fibrillation with RVR I48.91 Time Spent (min) 57
--- NOTE | 2023-06-23 09:32 | XR_ITS ---
WS: [id number] Portable AP upright chest, 06/23/2023 Clinical Data: afib Comparison: PA chest with acute abdomen series, 07/01/2011 Findings: No nodules, masses or effusions are seen. The heart is normal. The pulmonary vascularity is not increased. No pneumonia or pneumothorax is seen. XR/XR chest 1V portable [id number] Impression: Negative chest.
--- NOTE | 2023-06-23 09:32 | PC.NURSE ---
Nurse called Dr. Shirley to ask about giving second bag of IV fluid 1000ml. Dr Shirley said hold for now and that he will order metoprolol.
[2023-06-23] MEDS: metoprolol tartrate 25 mg Tablet 12.5 MG PO ×2 (10:07→20:26)
[2023-06-23] MEDS: aspirin 81 mg EC Tablet PO (10:07)
--- NOTE | 2023-06-23 10:57 | PC.NURSE ---
Diltiazem discontinued currently as patient's heart rate sits in the 60s
--- NOTE | 2023-06-23 11:50 | P.CONIM_ITS ---
Providers/Reason For Consult 2 Consulting Physician/Specialty*: Jem John MD/ Cardiology Reason for Consult*: Atrial fibrillation with RVR Requesting Physician: Dr Shirley Attending Physician: Duane Shirley MD Primary Care Provider: ADOLFO Monzon History of Present Illness History of Present Illness Raffaele Pascual is a 18 year old female with no significant prior cardiac history presented to hospital for palpitations and nausea since last night. Mild chest discomfort when the heart rate was elevated. She was started on Cardizem drip in the ER. Heart rates are still elevated. She says she had on and off episodes of palpitations in the past as well. Review of Systems 2 General: Reports: 10 or more systems reviewed and unremarkable except in HPI and below Narrative: Negative except as noted above Eyes: Reports: blurry vision Card: Reports: palpitations, irregular heart rhythm and lightheadedness Resp: Reports: dyspnea GI: Reports: nausea and vomiting Medications/Allergies Home Medications Medication Instructions Recorded Confirmed Last Taken Type metoprolol tartrate 25 mg tablet 12.5 mg (1/2 x 25 mg) PO 06/24/23 07/01/23 06/30/23 Rx BID@0900,2100 #60 tabs aspirin 81 mg tablet,delayed 81 mg PO QPM 07/01/23 07/01/23 06/30/23 History release Allergies Allergy/AdvReac Type Severity Reaction Status Date / Time No Known Allergies Allergy Verified 06/28/23 12:44 Current Medications Generic Name Dose Route Start Last Admin Trade Name Freq PRN Reason Stop Dose Admin Aspirin 81 mg 06/23/23 09:18 06/23/23 10:07 Aspirin 81 Mg Ec Tablet PO 81 mg DAILY KAHLIL Administration Diltiazem HCl 100 mg/ Sodium 100 mls @ 0 mls/hr 06/23/23 08:00 06/23/23 10:42 Chloride IV 0 mg/hr .Q0M KAHLIL 0 mls/hr Titration Protocol Per Protocol PFSH Acute 2 PFSH: Family History Mother Cancer breast Thyroid disease Denies family history of Diabetes Heart disease Chronic kidney disease (CKD) Bleeding disorder Stroke Social History Smoking and tobacco/nicotine status: never used tobacco/nicotine Alcohol intake: current Alcohol intake frequency: few times a month Substance/Drug Use: former Date of last use: May 30, 2023 Former substance use details: Marijuana - Gummy Lives independently: Yes Household members: friend(s) Housing: Apartment Number of children: 0 Female Reproductive History: Date of last menstrual period: 06/17/23 control method: none : 0 Para: 0 Vitals/I&O/Wt Last Vital Signs Temp 98.8 F 06/23/23 11:47 Pulse 70 06/23/23 11:47 Resp 28 H 06/23/23 11:47 BP 100/58 06/23/23 11:47 Pulse Ox 100 06/23/23 11:47 O2 Del Method Room Air 06/23/23 11:47 06/22/23 06/23/23 06/23/23 22:59 06:59 14:59 Intake Total 1030.500 / 1030.500 Balance 1030.500 / 1030.500 Weight last 48 hrs Weight 130 lb Physical Exam 2 Narrative: GENERAL: Patient is alert, awake and oriented x3. [] NECK: No jugular vein distension. [] HEENT: No cyanosis. No icterus. No pallor. [] HEART: Irregularly irregular LUNGS: Clear to auscultate bilaterally. [] CENTRAL NERVOUS SYSTEM: Grossly nonfocal. [] EXTREMITIES: Lower extremities with 1+ edema bilaterally. Data 06/24/23 03:48 06/24/23 03:48 A&P Assessment and plan (1) Atrial fibrillation with RVR: Plan Patient heart rates are still fluctuating and elevated. Will plan on JANA cardioversion tomorrow if rhythm does not convert spontaneously. N.p.o. past midnight. Can start on anticoagulation as if we cardiovert patient tomorrow, will need to stay on anticoagulation for 30 days Thank you for involving us with care of this patient. We will continue to follow. Please call with questions. Consult Attestations 2 Medical Necessity Statement: Care expected to cross 2 midnights. Coding Level of Care Code Acute Code for Taviag Fwd Diagnoses Atrial fibrillation with RVR I48.91
[2023-06-23 16:02] LABS: Amphetamines Screen Urine Negative (Negative); Barbiturates Screen Urine Negative (Negative); Benzodiazepines Screen Urine Negative (Negative); Cocaine Screen Urine Negative (Negative); Opiate Screen Urine Negative (Negative); PCP Screen Urine Negative (Negative); THC Screen Urine Negative (Negative)
[2023-06-23 16:09] LABS: Add Urine Microscopic? YES; Bilirubin Urine Neg (Negative); Blood Urine Neg (Negative); Glucose Urine UA Norm (Normal); Ketones Urine Negative (Negative); Leukocyte Esterase Urine 1+ (Negative); Nitrate Urine Negative (Negative); Protein Urine Neg (Negative); Sulfosalicylic Acid Urine Negative (Negative); Urine Appearance Cloudy (CLEAR); Urine Color Yellow (Yellow); Urobilinogen Urine Norm (Negative); pH Urine 8 (5-7)
[2023-06-23 16:42] LABS: Bacteria Urine TRACE /hpf; Mucus Urine TRACE /hpf; RBC Urine 0-4 /hpf (0-2); Transitional Epi Cells Urine 0-4 /hpf
[2023-06-23 16:43] LABS: Add Urine Culture? No; Amorphous Sediment Urine 1+ /hpf
[2023-06-23] MEDS: ondansetron 2 mg/ML SDV 2 mL 4 MG IVP (18:45)
[2023-06-23] MEDS: apixaban 5 mg Tablet PO (20:26)
[2023-06-24 03:39] VITALS: BP 90/56; PULSE 71; RESP 15; TEMP 36.6; O2SAT 98
[2023-06-24 04:11] VITALS: PULSE 81
[2023-06-24 04:40] LABS: Basophils % 0.5 %; Eosinophils # 0.2 10^3/uL (0.0-0.8); Eosinophils % 2.1 %; Lymphocytes # 2.9 10^3/uL (1.5-6.5); Lymphocytes % 36.1 %; Mean Corpuscular HGB Conc 32.3 g/dL (30-55); Mean Corpuscular Hemoglobin 29.1 pg (27-33); Mean Corpuscular Volume 90.1 fl (85-98); Mean Platelet Volume 9.9 fL (7.4-10.4); Monocytes # 0.7 10^3/uL (0.2-0.9); Monocytes % 8.1 %; Neutrophils # 4.27 10^3/uL (1.8-8.0); Nucleated Red Blood Cells % 0 %; Platelet Count 274 10^3/cmm (157-399); Red Blood Count 4.44 10^6/uL (3.85-5.65); Red Cell Distribution Width 13.6 % (12.1-15.1); White Blood Count 8.06 10^3/uL (4.5-13.0)
[2023-06-24 04:57] LABS: Alanine Aminotransferase 11 U/L (0-33); Albumin Level 3.7 g/dL (3.5-5.2); Alkaline Phosphatase 76 U/L (35-105); Aspartate Amino Transferase 10 U/L (0-32); Blood Urea Nitrogen 10 mg/dL (6-20); Calcium 9.1 mg/dL (8.5-10.5); Carbon Dioxide 26 mmol/L (22-29); Chloride 105 mmol/L (98-107); Creatinine Clr Calc Pharmacy 130.6523; Globulin 3.2 g/dL (1.3-4.6); Glomerular Filtration Rate 106.7 mL/min (90-130); Glucose 103 mg/dL (65-115); Osmolality Calculated 287 mOsm/kg (285-295); Sodium 139 mmol/L (136-145); Total Bilirubin 0.2 mg/dL (0.15-1.2); Total Protein 6.9 g/dL (6.6-8.7)
[2023-06-24 08:00] VITALS: BP 114/68; PULSE 87; RESP 14; TEMP 36.6
[2023-06-24] MEDS: aspirin 81 mg EC Tablet PO (08:10)
[2023-06-24] MEDS: apixaban 5 mg Tablet PO (08:10)
[2023-06-24] MEDS: metoprolol tartrate 25 mg Tablet 12.5 MG PO (08:10)
--- NOTE | 2023-06-24 09:30 | P.DS_ITS ---
Discharge Providers Date of Admission: 06/23/23 08:41 Date of Discharge: June 24, 2023 Attending Provider at Admission: Duane Shirley MD Attending Provider at Discharge: Madison Negrete MD Primary Care Provider: ADOLFO Monzon Diagnoses at Discharge Discharge Diagnosis (1) Atrial fibrillation with RVR: Status: Resolved Reason for Visit Reason for Visit: n,v, fast heart rate Hospital Course Hospital Course Patient presented to the hospital with nausea vomiting and some shortness of breath and palpitations. On EKG in ER she was found to be in A-fib with RVR. Given diltiazem 15 IV push. Rate reduced and converted to sinus rhythm however we wanted back to A-fib with RVR. Diltiazem drip was started at that point. Cardiology was consulted. Patient was started on aspirin, metoprolol 12.5 twice daily. Electrolyte were checked. Patient seen by cardiology. She has converted to sinus rhythm at this point. Placed on metoprolol 12.5 twice daily at discharge. Event monitor for 30 days ordered. Cardiology follow-up ordered outpatient. Patient discharged home in stable condition. (Event monitor ordered not showing up on discharge summary however it was ordered for the patient as confirmed by nursing staff) Physical Exam Narrative: General: No distress Neuro: Alert and oriented, conversing appropriately. HEENT: Head atraumatic, normocephalic, PERRL, . CV: Normal sinus rhythm, S1-S2 noted, no murmurs rubs or gallops noted. Pulm: Lungs clear to auscultation bilaterally, symmetric chest rise. GI: Abdomen soft, nontender, bowel sounds active in all quadrants. : Deferred?patient has no concerns. Extremities: Distal pulses intact in upper and lower extremities bilaterally Discharge Data Studies Completed and Pending Completed Studies During Hospitalization Category Date Time Status XR chest 1V portable [id number] Routine Exams 06/23/23 09:32 Completed CV. echo complete* [id number] Stat Ultrasound 06/23/23 08:11 Completed Radiology Impressions Chest X-Ray 06/23/23 09:32 Impression: Negative chest. Laboratory Results WBC 8.06 10^3/uL (4.5-13.0) 06/24/23 03:48 RBC 4.44 10^6/uL (3.85-5.65) 06/24/23 03:48 Hgb 12.90 g/dL (12.4-14.8) 06/24/23 03:48 Hct 40.0 % (36-47) 06/24/23 03:48 MCV 90.1 fl (85-98) 06/24/23 03:48 MCH 29.1 pg (27-33) 06/24/23 03:48 MCHC 32.3 g/dL (30-55) 06/24/23 03:48 RDW 13.6 % (12.1-15.1) 06/24/23 03:48 Plt Count 274 10^3/cmm (157-399) 06/24/23 03:48 MPV 9.9 fL (7.4-10.4) 06/24/23 03:48 Neut % (Auto) 53.0 % 06/24/23 03:48 Lymph % (Auto) 36.1 % 06/24/23 03:48 Wise % (Auto) 8.1 % 06/24/23 03:48 Eos % (Auto) 2.1 % 06/24/23 03:48 Baso % (Auto) 0.5 % 06/24/23 03:48 Neut # (Auto) 4.27 10^3/uL (1.8-8.0) 06/24/23 03:48 Lymph # (Auto) 2.9 10^3/uL (1.5-6.5) 06/24/23 03:48 Wise # (Auto) 0.7 10^3/uL (0.2-0.9) 06/24/23 03:48 Eos # (Auto) 0.2 10^3/uL (0.0-0.8) 06/24/23 03:48 Baso # (Auto) 0.0 10^3/uL (0.0-0.1) 06/24/23 03:48 Nucleated RBC % (auto) 0 % 06/24/23 03:48 Nucleated RBCs # 0.0 /100WBC 06/24/23 03:48 D-Dimer <= 0.27 ug/mLFEU (0-0.59) 06/23/23 07:20 Sodium 139 mmol/L (136-145) 06/24/23 03:48 Potassium 4.0 mmol/L (3.5-5.1) 06/24/23 03:48 Chloride 105 mmol/L (98-107) 06/24/23 03:48 Carbon Dioxide 26 mmol/L (22-29) 06/24/23 03:48 Anion Gap 12.0 (5-19) 06/24/23 03:48 BUN 10 mg/dL (6-20) 06/24/23 03:48 Creatinine 0.7 mg/dL (0.5-0.9) 06/24/23 03:48 GFR Calculation 106.7 mL/min (90-130) 06/24/23 03:48 Glucose 103 mg/dL (65-115) 06/24/23 03:48 Calculated Osmolality 287 mOsm/kg (285-295) 06/24/23 03:48 Calcium 9.1 mg/dL (8.5-10.5) 06/24/23 03:48 Magnesium 2.0 mg/dL (1.7-2.3) 06/24/23 03:48 Total Bilirubin 0.2 mg/dL (0.15-1.2) 06/24/23 03:48 AST 10 U/L (0-32) 06/24/23 03:48 ALT 11 U/L (0-33) 06/24/23 03:48 Alkaline Phosphatase 76 U/L (35-105) 06/24/23 03:48 Total Protein 6.9 g/dL (6.6-8.7) 06/24/23 03:48 Albumin 3.7 g/dL (3.5-5.2) 06/24/23 03:48 Globulin 3.2 g/dL (1.3-4.6) 06/24/23 03:48 Lipase 27 U/L (13-60) 06/23/23 07:20 TSH 1.17 uIU/mL (0.27-4.20) 06/23/23 07:20 HCG, Qual Negative (Negative) 06/23/23 07:20 Urine Color Yellow (Yellow) 06/23/23 15:33 Urine Appearance Cloudy (CLEAR) A 06/23/23 15:33 Urine pH 8 (5-7) H 06/23/23 15:33 Ur Specific [place] 1.010 (1.005-1.030) 06/23/23 15:33 Urine Protein Neg (Negative) 06/23/23 15:33 Urine Glucose (UA) Norm (Normal) 06/23/23 15:33 Urine Ketones Negative (Negative) 06/23/23 15:33 Urine Blood Neg (Negative) 06/23/23 15:33 Urine Nitrate Negative (Negative) 06/23/23 15:33 Urine Bilirubin Neg (Negative) 06/23/23 15:33 Prot Sulfosalicylic Acd Negative (Negative) 06/23/23 15:33 Urine Urobilinogen Norm mg/dL (Negative) 06/23/23 15:33 Ur Leukocyte Esterase 1+ (Negative) H 06/23/23 15:33 Urine RBC 0-4 /hpf (0-2) H 06/23/23 15:33 Urine WBC 5-10 /hpf (0-5) H 06/23/23 15:33 Ur Squamous Epith Cells 10-15 /hpf (0-5) H 06/23/23 15:33 Ur Transition Epith Cell 0-4 /hpf 06/23/23 15:33 Amorphous Sediment 1+ /hpf 06/23/23 15:33 Urine Bacteria Trace /hpf (NONE) 06/23/23 15:33 Urine Mucus Trace /hpf 06/23/23 15:33 Urine Opiates Screen Negative ng/mL (Negative) 06/23/23 15:33 Ur Barbiturates Screen Negative ng/mL (Negative) 06/23/23 15:33 Ur Phencyclidine Scrn Negative ng/mL (Negative) 06/23/23 15:33 Ur Amphetamines Screen Negative ng/mL (Negative) 06/23/23 15:33 U Benzodiazepines Scrn Negative ng/mL (Negative) 06/23/23 15:33 Urine Cocaine Screen Negative ng/mL (Negative) 06/23/23 15:33 U Marijuana (THC) Screen Negative ng/mL (Negative) 06/23/23 15:33 Vitals Last Vital Signs Temp 97.8 F 06/24/23 08:00 Pulse 87 06/24/23 08:00 Resp 14 06/24/23 08:00 BP 114/68 06/24/23 08:00 Pulse Ox 98 06/24/23 03:39 O2 Del Method Room Air 06/24/23 03:39 Discharge Plan Discharge Patient Disposition: Home Condition: Stable Prescriptions: New aspirin 81 mg Tablet,Delayed Release (Dr/Ec) 81 mg PO DAILY Qty: 30 0RF metoprolol tartrate 25 mg Tablet 12.5 mg PO BID@0900,2100 Qty: 60 0RF Discharge Orders: Discharge Order (Routine); Ordered 06/24/23 Ordered By: Madison Negrete Referrals: Jem John M.D [Physician] - 1 month (Your Dr. John follow up appointment will be scheduled during your Yaneli Gonzalez appointment. Thank you.) Yaneli Gonzalez FNP [Nurse Practitioner] - 08/08/23 1:00 pm (You have an appointment on 06-27-23 at 11:00 a.m. at [facility] to have your 30 day Event Monitor put on. Your follow up with Yaneli Gonzalez will be after the results are in from the Event Monitor. Your follow up appointment with the Enterprise Architect Manager will be scheduled during your Yaneli Gonzalez appointment. Thank you.) Jena Cueva MD [Physician] - 06/28/23 1:00 pm (Your follow up appointment will be with Angela Nguyen at the [facility]. Plese keep this appointment. You can call them if you have any questions or concerns. Thank you.) Discharge Diet: Regular Discharge Activity: Resume usual activity Patient Instructions: Metoprolol (By mouth) (Lopressor, Toprol XL), Aspirin (By mouth) (Coby Extra Strength, Coby Aspirin Children's,..., A-fib (Atrial Fibrillation) (DC), Opioid Safety Discharge Attestations Time Spent in Discharge Care*: less than 30 min Quality Metrics Clinical Quality Measures [ No reported AMI, CVA or VTE this stay] Coding Level of Care Code Acute Code for Chg Fwd Diagnoses Atrial fibrillation with RVR I48.91
[2023-06-24 11:23] VITALS: BP 114/68; PULSE 87; RESP 14; TEMP 36.6
--- NOTE | 2023-06-24 11:35 | PC.NURSE ---
Provided discharge instructions to patient regarding new medications, disease processes, 30-day cardiac event monitor and scheduled appointments. Patient verbalized complete understanding. New medications sent to [facility]. Patient waiting for mother to return prior to leaving.
== END 2023-06-24 11:40 | disposition home or self-care (01) ==
LOC: ER 08:24 → CSU 09:46
PROVIDERS: Admitting Provider Internal Medicine; Emergency Provider Emergency Medicine; PCP Nurse Practitioner Family; Visit Provider Internal Medicine
DX: I48.91 Unspecified atrial fibrillation (principal); I34.0 Nonrheumatic mitral (valve) insufficiency
CPT/HCPCS: 71045; 80053; 80306; 81001; 81015; 83690; 83735; 84443; 84703; 85025; 85378; 93005; 93306; 96365; 96366; 96375; 96376; 99285; G0378; J2405; J3490; J7030

== ENCOUNTER 2023-07-01 08:34 | Emergency (ER) | payer MEDICAID, SELFPAY ==
[2023-07-01] VITALS (36 sets, daily range): BP systolic 93–126; BP diastolic 64–98; PULSE 79–102; RESP 13–32; O2SAT 97–100
--- NOTE | 2023-07-01 09:06 | PC.PHAR ---
SHOWS IN TRIAGE-PT STATES TAKES BLOOD THINNER. VIERIFIED WITH [facility]-PT IS TAKING 81MG ASPIRIN.
--- NOTE | 2023-07-01 09:09 | XR_ITS ---
WS: [id number] Portable AP upright chest, 07/01/2023 Clinical Data: dyspnea/cough Comparison: Portable chest, 06/23/2023 Findings: No nodules, masses or effusions are seen. The heart is normal. The pulmonary vascularity is not increased. No pneumonia or pneumothorax is seen. Monitor leads are on the chest wall. There is a monitor device overlying the mid chest. XR/XR chest 1V portable [id number] Impression: Negative chest.
--- NOTE | 2023-07-01 09:09 | ECG_ITS ---
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 Measurements Intervals [place] Rate: 85 P: 72 IL: 135 QRS: 87 QRSD: 83 T: 52 QT: 330 QTc: 394 Interpretive Statements SINUS RHYTHM Compared to ECG 06/23/2023 07:46:07 Atrial fibrillation no longer present T-wave abnormality no longer present Electronically Signed On 07-01-2023 10:07:31 CDT by Silke Moore M.D. [id number]
[2023-07-01 09:28] LABS: Basophils % 0.3 %; Eosinophils # 0.1 10^3/uL (0.0-0.8); Hematocrit 39.9 % (36-47); Lymphocytes % 33.1 %; Mean Corpuscular HGB Conc 32.6 g/dL (30-55); Mean Corpuscular Hemoglobin 28.9 pg (27-33); Mean Corpuscular Volume 88.7 fl (85-98); Mean Platelet Volume 9.2 fL (7.4-10.4); Monocytes # 0.5 10^3/uL (0.2-0.9); Monocytes % 7.4 %; Neutrophils % 57.9 %; Nucleated Red Blood Cells % 0 %; Platelet Count 274 10^3/cmm (157-399); Red Cell Distribution Width 13.8 % (12.1-15.1); White Blood Count 6.05 10^3/uL (4.5-13.0)
--- NOTE | 2023-07-01 09:29 | W.ED.CHESTPA ---
HPI - Chest Pain General: Chief Complaint: Chest Pain Stated Complaint: dizzy, left hand numbness Time Seen by Provider: 07/01/23 08:54 Source: patient Mode of arrival: ambulatory History of Present Illness: 18-year-old female presents to the emergency room complaining of left thumb numbness that was transient, she also had some dizziness accompanying this.. Initially described it as left hand bone I talked her she said it was really more of just her thumb and is completely resolved now. She has not had any other symptoms no difficulty with speech or swallowing. No difficulty with vision or walking. 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 No shortness of breath. She was recently hospitalized overnight for atrial fibrillation and was on diltiazem IV briefly that initially gotten her to convert and then she had a recurrence of the A-fib with RVR started on a drip monitored overnight converted again and was discharged home on metoprolol and baby aspirin daily. She currently has a Holter monitor in place. She denies any sensation of rapid heart rate this morning during this episode MD complaint: chest discomfort Onset (ago): minute(s) Timing of current episode: episodic Prior episodes: Yes Onset: during rest Pain location: left chest Associated symptoms: Deny abdominal pain, diaphoresis, dyspnea, fever(s), leg edema, nausea, palpitations, sense of impending doom, syncope or vomiting Review of Systems Const: Denies: fever(s) or diaphoresis Card: Denies: palpitations or syncope Resp: Denies: dyspnea GI: Denies: abdominal pain, nausea or vomiting : Denies: dysuria, urinary frequency or urinary urgency Musc: Denies: neck pain or back pain Skin/Breast: Denies: rash PFSH ED PFSH: Family History Mother Cancer breast Thyroid disease Denies family history of Diabetes Heart disease Chronic kidney disease (CKD) Bleeding disorder Stroke Social History Smoking and tobacco/nicotine status: never used tobacco/nicotine Alcohol intake: current Alcohol intake frequency: few times a month Substance/Drug Use: former Date of last use: May 30, 2023 Former substance use details: Yesi - Shalini Lives independently: Yes Household members: friend(s) Housing: Apartment Number of children: 0 Female Reproductive History: Para: 0 Physical Exam Const: COMMON NORMALS: no acute distress GENERAL APPEARANCE: cooperative and comfortable ORIENTATION/CONSCIOUSNESS: Yes awake, Yes oriented to person, Yes oriented to place and Yes oriented to time HENMT: COMMON NORMALS: normocephalic, atraumatic and hearing grossly normal bilaterally HEAD & SCALP: normocephalic and atraumatic Resp: COMMON NORMALS: normal respiratory effort, No retractions, No use of accessory muscles and clear to auscultation bilaterally AUSCULTATION: clear to auscultation bilaterally Cardio: COMMON NORMALS: regular rate, regular rhythm and No murmurs present (Cardio) RATE: regular rate RHYTHM: regular rhythm GI: COMMON NORMALS: Soft to palpation and No hepatosplenomegaly present AUSCULTATION: Yes normoactive bowel sounds PALPATION: Yes Soft to palpation, No Tenderness to palpation present (GI), No Guarding due to palpation present (GI) and Yes No hepatosplenomegaly present Extremity: COMMON NORMALS: normal to inspection, capillary refill normal, no clubbing, cyanosis or edema, no calf tenderness and no pedal edema Neuro: SENSORIUM/ORIENTATION: Yes oriented to person, Yes oriented to place and Yes oriented to time Skin: COMMON NORMALS: no rashes or lesions noted GENERAL SKIN EXAM: no rashes or lesions noted Course Vital Signs: Vital signs: Vital Signs Pulse Rate 95 07/01/23 11:25 Respiratory Rate 23 H 07/01/23 11:25 Blood Pressure 107/66 07/01/23 11:30 Pulse Oximetry 99 07/01/23 11:25 Oxygen Delivery Me thod Room Air 07/01/23 10:45 MDM - Chest Pain Medical Decision Making All of her symptoms have resolved send no further chest discomfort she has no numbness or tingling in her hands. Her description of her hand symptoms is more isolated to the thumb does not appear to be a central lesion. Will discharge patient home have her follow-up with cardiology return if she has further problems. If the episode of the hand recurs follow-up with primary care Medical Records I reviewed the patient's medical records. Lab Data I reviewed the patient's lab results. 07/01/23 09:20 07/01/23 09:20 Radiology Impressions Chest X-Ray 07/01/23 09:09 Impression: Negative chest. Laboratory Results WBC 6.05 10^3/uL (4.5-13.0) 07/01/23 09:20 RBC 4.50 10^6/uL (3.85-5.65) 07/01/23 09:20 Hgb 13.00 g/dL (12.4-14.8) 07/01/23 09:20 Hct 39.9 % (36-47) 07/01/23 09:20 MCV 88.7 fl (85-98) 07/01/23 09:20 MCH 28.9 pg (27-33) 07/01/23 09:20 MCHC 32.6 g/dL (30-55) 07/01/23 09:20 RDW 13.8 % (12.1-15.1) 07/01/23 09:20 Plt Count 274 10^3/cmm (157-399) 07/01/23 09:20 MPV 9.2 fL (7.4-10.4) 07/01/23 09:20 Neut % (Auto) 57.9 % 07/01/23 09:20 Lymph % (Auto) 33.1 % 07/01/23 09:20 Owen % (Auto) 7.4 % 07/01/23 09:20 Eos % (Auto) 1.0 % 07/01/23 09:20 Baso % (Auto) 0.3 % 07/01/23 09:20 Neut # (Auto) 3.50 10^3/uL (1.8-8.0) 07/01/23 09:20 Lymph # (Auto) 2.0 10^3/uL (1.5-6.5) 07/01/23 09:20 Owen # (Auto) 0.5 10^3/uL (0.2-0.9) 07/01/23 09:20 Eos # (Auto) 0.1 10^3/uL (0.0-0.8) 07/01/23 09:20 Baso # (Auto) 0.0 10^3/uL (0.0-0.1) 07/01/23 09:20 Nucleated RBC % (auto) 0 % 07/01/23 09:20 Nucleated RBCs # 0.0 /100WBC 07/01/23 09:20 Sodium 143 mmol/L (136-145) 07/01/23 09:20 Potassium 3.9 mmol/L (3.5-5.1) 07/01/23 09:20 Chloride 109 mmol/L (98-107) H 07/01/23 09:20 Carbon Dioxide 24 mmol/L (22-29) 07/01/23 09:20 Anion Gap 13.9 (5-19) 07/01/23 09:20 BUN 9 mg/dL (6-20) 07/01/23 09:20 Creatinine 0.7 mg/dL (0.5-0.9) 07/01/23 09:20 GFR Calculation 106.7 mL/min (90-130) 07/01/23 09:20 Glucose 85 mg/dL (65-115) 07/01/23 09:20 Calculated Osmolality 294 mOsm/kg (285-295) 07/01/23 09:20 Calcium 8.4 mg/dL (8.5-10.5) L 07/01/23 09:20 Total Bilirubin 0.2 mg/dL (0.15-1.2) 07/01/23 09:20 AST 13 U/L (0-32) 07/01/23 09:20 ALT 11 U/L (0-33) 07/01/23 09:20 Alkaline Phosphatase 71 U/L (35-105) 07/01/23 09:20 Total Protein 7.6 g/dL (6.6-8.7) 07/01/23 09:20 Albumin 4.3 g/dL (3.5-5.2) 07/01/23 09:20 Globulin 3.3 g/dL (1.3-4.6) 07/01/23 09:20 All radiology interpretation(s) finalized by discharge Discharge Plan Discharge Patient Disposition: Home Clinical Impression: Numbness of left hand, Atrial fibrillation Condition: Stable Prescriptions: No Action aspirin 81 mg tablet,delayed release (DR/EC) 81 mg PO QPM metoprolol tartrate 25 mg Tablet 12.5 mg PO BID@0900,2100 Qty: 60 0RF Discharge Orders: Discharge ED (Routine); Ordered 07/01/23 Ordered By: Fletcher Brand Referrals: Angela Nguyen FNP [Primary Care Provider] - Discharge Diet: Advance as tolerated Discharge Activity: Resume usual activity Patient Instructions: Opioid Safety, Pain Management Activity Restrictions/Additional Instructions: Thank you for choosing [facility] for your healthcare needs today. Please realize this is an emergency room and that we are providing you with a medical screening exam and this may not be complete and all inclusive of all the testing and or work up that you may need to determine your ailment or severity of your illness. It is very important that you follow up as instructed or that you return to the Emergency Department should you have concerns or if your condition changes or worsens in any way. You were seen today for complaint of chest discomfort and numbness in your left hand. 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
[2023-07-01 09:45] LABS: Alanine Aminotransferase 11 U/L (0-33); Albumin Level 4.3 g/dL (3.5-5.2); Alkaline Phosphatase 71 U/L (35-105); Anion Gap 13.9 (5-19); Aspartate Amino Transferase 13 U/L (0-32); Blood Urea Nitrogen 9 mg/dL (6-20); Calcium 8.4 mg/dL (8.5-10.5); Carbon Dioxide 24 mmol/L (22-29); Chloride 109 mmol/L (98-107); Creatinine Clr Calc Pharmacy 126.4298; Globulin 3.3 g/dL (1.3-4.6); Glomerular Filtration Rate 106.7 mL/min (90-130); Glucose 85 mg/dL (65-115); Osmolality Calculated 294 mOsm/kg (285-295); Potassium 3.9 mmol/L (3.5-5.1); Sodium 143 mmol/L (136-145); Total Bilirubin 0.2 mg/dL (0.15-1.2); Total Protein 7.6 g/dL (6.6-8.7)
== END 2023-07-01 11:30 | disposition home or self-care (01) ==
PROVIDERS: Emergency Provider Family Medicine; PCP Nurse Practitioner
DX: R20.0 Anesthesia of skin (principal); I48.91 Unspecified atrial fibrillation
CPT/HCPCS: 36415; 71045; 80053; 85025; 93005; 99285

== ENCOUNTER 2023-08-29 15:21 | Inpatient (IN) | payer MEDICAID, SELFPAY ==
[2023-08-29 15:40] VITALS: BP 124/89; PULSE 99; RESP 18; TEMP 36.8; O2SAT 95; BMI 19.4
--- NOTE | 2023-08-29 15:51 | W.ED.PSYCHS ---
HPI - Psych General: Chief Complaint: Psychiatric Symptoms Stated Complaint: SI Time Seen by Provider: 08/29/23 15:26 Source: patient Mode of arrival: ambulatory Limitations: no limitations History of Present Illness: 18-year-old female who states she had a history of depression in the past states she did try to harm herself a few years ago was supposed to be on Paxil has not taken over a year. She has had increasing depression in the last week. She states that she has been having thoughts of self-harm with thoughts of cutting herself. Denies any worsening improving factors Associated symptoms: Reports depression and suicidal ideation Review of Systems Const: Denies: fever(s), chills or body aches ENMT: Denies: throat pain or dental pain Card: Denies: chest pain Resp: Denies: dyspnea GI: Denies: abdominal pain, nausea, vomiting or diarrhea Musc: Denies: neck pain or back pain Skin/Breast: Denies: rash Neuro: Denies: headache(s) Psych: Reports: depression and suicidal ideation PFS ED PFSH: Family History Mother Cancer breast Thyroid disease Denies family history of Diabetes Heart disease Chronic kidney disease (CKD) Bleeding disorder Stroke Social History Smoking and tobacco/nicotine status: never used tobacco/nicotine Alcohol intake: current Alcohol intake frequency: few times a month Substance/Drug Use: former Date of last use: May 30, 2023 Former substance use details: Marijuana - Gummy Lives independently: Yes Household members: friend(s) Housing: Apartment Number of children: 0 Female Reproductive History: Para: 0 Physical Exam Const: COMMON NORMALS: no acute distress, patient oriented x3 and healthy appearing HENMT: COMMON NORMALS: normocephalic and atraumatic HEAD & SCALP: normocephalic and atraumatic Eye: COMMON NORMALS: conjunctivae normal CONJUNCTIVA: Yes conjunctivae normal Neck/C-Spine: COMMON NORMALS: full ROM and supple Chest: COMMONS NORMALS: normal inspection of the chest Resp: COMMON NORMALS: normal respiratory effort Extremity: COMMON NORMALS: normal to inspection and full ROM Neuro: COMMON NORMALS: patient oriented x3, moves all extremities and no focal motor deficits Psych: COMMON NORMALS: mental status grossly normal, Normal thought process present and cooperative MOOD & AFFECT: Yes depressed mood THOUGHT PROCESS: Normal thought process present THOUGHT CONTENT: Yes Suicidality present Skin: COMMON NORMALS: no rashes or lesions noted and no wounds GENERAL SKIN EXAM: no rashes or lesions noted Course Vital Signs: Vital signs: Vital Signs Temperature 98.3 F 08/29/23 15:40 Pulse Rate 99 08/29/23 15:40 Respiratory Rate 18 08/29/23 15:40 Blood Pressure 124/89 08/29/23 15:40 Pulse Oximetry 95 08/29/23 15:40 Oxygen Delivery Me thod Room Air 08/29/23 15:40 MDM - Psych Medical Decision Making Patient presents here with suicidal ideation patient is medically cleared I spoke to the psychiatrist will admit at this time. Medical Records I reviewed the patient's medical records. Lab Data I reviewed the patient's lab results. 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
--- NOTE | 2023-08-29 16:30 | PC.NURSE ---
96 Hr rights reviewed with patient @1610. All education reviewed with patient. No verbalized questions or concerns at this time. Patient copy left with patient. No needs at this time.
[2023-08-29 16:32] VITALS: BP 124/89; PULSE 99; RESP 18; TEMP 36.8; O2SAT 95
[2023-08-29 16:38] LABS: Basophils % 0.2 %; Eosinophils % 0.2 %; Hematocrit 41.1 % (36-47); Lymphocytes # 2.1 10^3/uL (1.5-6.5); Mean Corpuscular HGB Conc 33.3 g/dL (30-55); Mean Corpuscular Hemoglobin 29.4 pg (27-33); Mean Corpuscular Volume 88.2 fl (85-98); Mean Platelet Volume 9.7 fL (7.4-10.4); Monocytes # 0.6 10^3/uL (0.2-0.9); Monocytes % 6.3 %; Neutrophils # 7.08 10^3/uL (1.8-8.0); Nucleated Red Blood Cells % 0 %; Platelet Count 298 10^3/cmm (157-399); Red Blood Count 4.66 10^6/uL (3.85-5.65); Red Cell Distribution Width 12.5 % (12.1-15.1); White Blood Count 9.84 10^3/uL (4.5-13.0)
[2023-08-29 17:12] LABS: Alanine Aminotransferase 10 U/L (0-33); Albumin Level 4.3 g/dL (3.5-5.2); Alkaline Phosphatase 76 U/L (35-105); Anion Gap 22.5 (5-19); Aspartate Amino Transferase 12 U/L (0-32); Blood Urea Nitrogen 12 mg/dL (6-20); Calcium 9.2 mg/dL (8.5-10.5); Carbon Dioxide 19 mmol/L (22-29); Chloride 99 mmol/L (98-107); Creatinine Clr Calc Pharmacy 145.3594; Globulin 3.6 g/dL (1.3-4.6); Glomerular Filtration Rate 127.5 mL/min (90-130); Glucose 79 mg/dL (65-115); Osmolality Calculated 283 mOsm/kg (285-295); Potassium 3.5 mmol/L (3.5-5.1); Sodium 137 mmol/L (136-145); Total Bilirubin 0.5 mg/dL (0.15-1.2); Total Protein 7.9 g/dL (6.6-8.7)
[2023-08-29 17:14] LABS: Acetaminophen < 5.0 ug/mL (10-30); Alcohol Level < 10 mg/dL (0-10); Salicylate < 0.3 mg/dL (3-10)
[2023-08-29 17:24] VITALS: BP 110/78; PULSE 90; RESP 16; TEMP 37.2; O2SAT 99
--- NOTE | 2023-08-29 18:29 | PC.ADMIT ---
[id number] Admission Note: The patient,Raffaele Pascual,18 y/o, was given written information regarding hospital policies, unit procedures and contact persons. Patient's smoking status: never smoked. Vital Signs - 8 hr 08/29/23 15:40 08/29/23 16:32 08/29/23 17:24 Temperature 98.3 F 98.3 F 99.0 F Pulse Rate 99 99 90 Respiratory Rate 18 18 16 Blood Pressure 124/89 124/89 110/78 Pulse Oximetry 95 95 99 Oxygen Delivery Method Room Air Room Air 08/29/23 17:55 Temperature Pulse Rate Respiratory Rate Blood Pressure Pulse Oximetry Oxygen Delivery Method Room Air ADMITTED ON A 96 HOUR HOLD THAT ENDS ON 09/02/23 AT 1600. PT ARRIVED ON UNIT AT 1718 IN WHEELCHAIR WITH STAFF. PT DENIES SI/HI AND AVH AT THIS TIME. DENIES PAIN. PT REPORTS SHE HAS BEEN DIAGNOSISED WITH ANXIETY AND DEPRESSION IN THE PAST. PT STATES SHE HAS NOT TAKEN ANY MEDICATIONS FOR THE PAST YEAR BUT WAS ON PAXIL AT ONE TIME AND DID SEE SOMEONE FROM [facility] IN [place]. PT CURRENTLY DENIES SI/HI AND AVH AT THIS TIME. RATES ANXIETY 5/10 AND DEPRESSION 4/10. PT WAS EDUCATED THAT IF SHE HAS INCREASED ANXIETY OR AGITATION SHE CAN ASK FOR MEDICATION TO DECREASE IT. PT WAS GIVEN A DINNER TRAY AND A DRINK. PT REPORTS SHE DOES STAY AT A FRIENDS HOUSE OR HER MOTHERS. PT DOES WORK AT THE [employer] HERE AT THE HOSPITAL AND REPORTS SHE ENJOYS HER JOB BUT SHE KNOWS I NEED HELP. PT STATES WHEN SHE IS GETTING READY TO HAVE HER PERIOD SHE HAS INCREASED FEELINGS OF SUICIDAL THOUGHTS. PT DOES HAVE A FLAT AFFECT UPON ADMISSION. PT WAS ORIENTATED TO UNIT. SKIN ASSESSMENT REVEALS NO SKIN ISSUES. ALL QUESTIONS ANSWERED AND SUPPORT VOICED.
[2023-08-29 22:00] VITALS: BP 108/71; PULSE 98; RESP 15; TEMP 36.8; O2SAT 99
[2023-08-30 06:00] VITALS: BP 105/68; PULSE 72; RESP 16; TEMP 36.6; O2SAT 99
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
[2023-08-30 14:00] VITALS: BP 107/72; PULSE 81; RESP 16; TEMP 36.6; O2SAT 98
[2023-08-30 20:24] LABS: HCG Qualitative Urine. Negative (Negative)
[2023-08-30] MEDS: trazodone 50 mg Tablet PO (21:05)
[2023-08-30] MEDS: hyDROXYzine 25 mg Capsule 50 MG PO (21:06)
[2023-08-30 21:58] VITALS: BP 109/68; PULSE 76; RESP 16; TEMP 36.6; O2SAT 99
[2023-08-31 06:00] VITALS: BP 103/68; PULSE 70; RESP 13; TEMP 36.5; O2SAT 98
[2023-08-31 13:08] LABS: Amphetamines Screen Urine Negative (Negative); Barbiturates Screen Urine Negative (Negative); Benzodiazepines Screen Urine Negative (Negative); Cocaine Screen Urine Negative (Negative); Opiate Screen Urine Negative (Negative); PCP Screen Urine Negative (Negative); THC Screen Urine Negative (Negative)
[2023-08-31 14:00] VITALS: BP 98/63; PULSE 82; RESP 17; TEMP 37.3; O2SAT 98
[2023-08-31] MEDS: PARoxetine 20 mg Tablet PO (15:52)
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
[2023-08-31] MEDS: hyDROXYzine 25 mg Capsule 50 MG PO (21:00)
[2023-08-31] MEDS: trazodone 50 mg Tablet PO (21:00)
[2023-08-31 21:31] VITALS: BP 106/65; PULSE 83; RESP 16; TEMP 36.6; O2SAT 99
[2023-09-01 06:00] VITALS: BP 94/59; PULSE 92; RESP 14; TEMP 37.1; O2SAT 97
[2023-09-01] MEDS: PARoxetine 20 mg Tablet PO (08:46)
--- NOTE | 2023-09-01 10:50 | P.NPUDS_ITS ---
Diagnoses at Discharge Discharge Diagnosis (1) Suicidal ideation: Status: Acute (2) JOSE (generalized anxiety disorder): Status: Acute (3) Depression: Status: Acute (4) Adjustment disorder with mixed disturbance of emotions and conduct: Status: Acute Reason for Visit Reason for Visit: SI Involuntary Hold Information 96 Hour Hold: 96 Hour Involuntary Admission: Yes 96 Hour Hold Ending Date: 09/02/23 96 Hour Hold Ending Time: 16:00 Mental Status Exam MSE Comments: This is an underweight versus cachectic white female in hospital scrubs with limited grooming and eye contact. No abnormal movements except for psychomotor retardation. Cooperative with exam in mild distress. Speech was decreased rate and volume. Mood described as okay, affect congruent and slightly subdued. Thought process linear. Thought content: Patient denied current suicidal or homicidal ideation, there were no delusions reported or noted, she denied auditory or visual hallucinations. The patient reported feeling anxious and overwhelmed due to her work situation and personal life events. She reported having a panic attack and feeling scattered. She denied current suicidal ideation, thoughts of violence or aggression against others, and any hallucinations. She reported feeling stressed rather than depressed. She denied any feelings of helplessness, hopelessness, or worthlessness. Attention and concentration were intact and memory was mostly reliable but none were formally tested. She is alert and oriented x 3. Insight and judgment are limited and impulse control is limited. Discharge Data Studies Completed and Pending: Laboratory Results WBC 9.84 10^3/uL (4.5 -13.0) 08/29/23 16:12 RBC 4.66 10^6/uL (3.8 5-5.65) 08/29/23 16:12 Hgb 13.70 g/dL (12.4- 14.8) 08/29/23 16:12 Hct 41.1 % (36-47) 08/29/23 16:12 MCV 88.2 fl (85-98) 08/29/23 16:12 MCH 29.4 pg (27-33) 08/29/23 16:12 MCHC 33.3 g/dL (30-55) 08/29/23 16:12 RDW 12.5 % (12.1-15.1 ) 08/29/23 16:12 Plt Count 298 10^3/cmm (157 -399) 08/29/23 16:12 MPV 9.7 fL (7.4-10.4) 08/29/23 16:12 Neut % (Auto) 72.0 % 08/29/23 16:12 Lymph % (Auto) 21.0 % 08/29/23 16:12 [place] % (Auto) 6.3 % 08/29/23 16:12 Eos % (Auto) 0.2 % 08/29/23 16:12 Baso % (Auto) 0.2 % 08/29/23 16:12 Neut # (Auto) 7.08 10^3/uL (1.8 -8.0) 08/29/23 16:12 Lymph # (Auto) 2.1 10^3/uL (1.5- 6.5) 08/29/23 16:12 [place] # (Auto) 0.6 10^3/uL (0.2- 0.9) 08/29/23 16:12 Eos # (Auto) 0.0 10^3/uL (0.0- 0.8) 08/29/23 16:12 Baso # (Auto) 0.0 10^3/uL (0.0- 0.1) 08/29/23 16:12 Nucleated RBC % (a uto) 0 % 08/29/23 16:12 Nucleated RBCs # 0.0 /100WBC 08/29/23 16:12 Sodium 137 mmol/L (136-1 45) 08/29/23 16:12 Potassium 3.5 mmol/L (3.5-5 .1) 08/29/23 16:12 Chloride 99 mmol/L (98-107 ) 08/29/23 16:12 Carbon Dioxide 19 mmol/L (22-29) L 08/29/23 16:12 Anion Gap 22.5 (5-19) H 08/29/23 16:12 BUN 12 mg/dL (6-20) 08/29/23 16:12 Creatinine 0.6 mg/dL (0.5-0. 9) 08/29/23 16:12 GFR Calculation 127.5 mL/min (90- 130) 08/29/23 16:12 Glucose 79 mg/dL (65-115) 08/29/23 16:12 Calculated Osmolal ity 283 mOsm/kg (285- 295) L 08/29/23 16:12 Calcium 9.2 mg/dL (8.5-10 .5) 08/29/23 16:12 Total Bilirubin 0.5 mg/dL (0.15-1 .2) 08/29/23 16:12 AST 12 U/L (0-32) 08/29/23 16:12 ALT 10 U/L (0-33) 08/29/23 16:12 Alkaline Phosphata se 76 U/L (35-105) 08/29/23 16:12 Total Protein 7.9 g/dL (6.6-8.7 ) 08/29/23 16:12 Albumin 4.3 g/dL (3.5-5.2 ) 08/29/23 16:12 Globulin 3.6 g/dL (1.3-4.6 ) 08/29/23 16:12 HCG, Qual Negative (Negati ve) 08/29/23 18:00 Salicylates < 0.3 mg/dL (3-10 ) L 08/29/23 16:12 Urine Opiates Scre en Negative ng/mL (N egative) 08/31/23 12:30 Acetaminophen < 5.0 ug/mL (10-3 0) L 08/29/23 16:12 Ur Barbiturates Sc reen Negative ng/mL (N egative) 08/31/23 12:30 Ur Phencyclidine S crn Negative ng/mL (N egative) 08/31/23 12:30 Ur Amphetamines Sc reen Negative ng/mL (N egative) 08/31/23 12:30 U Benzodiazepines Scrn Negative ng/mL (N egative) 08/31/23 12:30 Urine Cocaine Scre en Negative ng/mL (N egative) 08/31/23 12:30 U Marijuana (THC) Screen Negative ng/mL (N egative) 08/31/23 12:30 Ethyl Alcohol < 10 mg/dL (0-10) 08/29/23 16:12 Vitals: Last Vital Signs Temp 98.7 F 09/01/23 06:00 Pulse 92 09/01/23 06:00 Resp 14 09/01/23 06:00 BP 94/59 09/01/23 06:00 Pulse Ox 97 09/01/23 06:00 O2 Del Method Room Air 09/01/23 06:00 Discharge Plan Discharge Patient Disposition: Home Condition: Stable Prescriptions: New paroxetine HCl 20 mg Tablet 20 mg PO DAILY 30 Days Qty: 30 1RF hydroxyzine pamoate 25 mg Capsule 50 mg PO Q6H PRN (Reason: Anxiety) 30 Days Qty: 120 1RF No Action No Known Home Medications Discharge Orders: Discharge Order (Routine); Ordered 09/01/23 Ordered By: Kashmir Cueva Referrals: [facility] [Other] [facility] [Other] - 10/03/23 10:00 am (Appointment with Xiao Yanes.) [facility] [Outside] - 09/07/23 8:30 am (Initial appointment 09/07/23 with check in at 08:30 am with Lynne. ) Angela Nguyen FNP [Primary Care Provider] - Discharge Diet: Regular Discharge Activity: Resume usual activity Patient Instructions: Opioid Safety Discharge Attestations NPU Time Spent in Discharge Care*: less than 30 min Specific Discharge Activities: Specific discharge activities: educating patient, discussing with bottle caser/social workers/dc planners, documenting/other paperwork and evaluating patient/reviewing data Coding Level of Care Code Acute Code for g Fwd Diagnoses Suicidal ideation R45.851 JOSE (generalized anxiety disorder) F41.1 Depression F32.A Adjustment disorder with mixed disturbance of emotions and conduct F43.25
[2023-09-01 10:58] VITALS: BP 94/59; PULSE 92; RESP 14; TEMP 37.1; O2SAT 97
== END 2023-09-01 14:16 | disposition home or self-care (01) | DRG 881 ==
LOC: ER 16:13 → NP 16:49
PROVIDERS: Admitting Provider Psychiatry & Neurology Psychiatry; Emergency Provider Emergency Medicine; PCP Nurse Practitioner; Visit Provider Psychiatry & Neurology Psychiatry
DX: F32.A Depression, unspecified (principal); R45.851 Suicidal ideations; F41.1 Generalized anxiety disorder; F43.25 Adjustment disorder with mixed disturbance of emotions and conduct
CPT/HCPCS: 36415; 80053; 80306; 80307; 81025; 85025; 97150; 97165; 99285

== ENCOUNTER 2023-10-08 03:08 | Emergency (ER) | payer MEDICAID, SELFPAY ==
[2023-10-08 03:10] VITALS: BP 130/87; PULSE 122; RESP 20; TEMP 36.6; O2SAT 100; BMI 19.4
[2023-10-08 03:20] VITALS: BP 130/87; PULSE 118; RESP 20; O2SAT 100
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
[2023-10-08 04:32] VITALS: BP 89/54; PULSE 94; RESP 14; O2SAT 96
[2023-10-08 04:37] LABS: Alcohol Level 233 mg/dL (0-10)
== END 2023-10-08 04:34 | disposition home or self-care (01) ==
PROVIDERS: Emergency Provider Emergency Medicine; PCP Nurse Practitioner
DX: M54.50 Low back pain, unspecified (principal); Z04.1 Encounter for examination and observation following transport accident; V49.9XXA Car occupant (driver) (passenger) injured in unspecified traffic accident, initial encounter
CPT/HCPCS: 71045; 72100; 80307; 99284

== ENCOUNTER → 2024-05-01 14:22 | Outpatient (BNVA) | payer MEDICAID, SELFPAY | PROVIDERS: PCP Nurse Practitioner; Visit Provider Registered Nurse Neonatal Intensive Care | DX: J02.9 Acute pharyngitis, unspecified (principal) | CPT/HCPCS: 87880 ==

== ENCOUNTER 2024-12-06 05:31 | Day surgery (SDC) | payer MEDICAID, SELFPAY ==
[2024-12-06] VITALS (18 sets, daily range): BP systolic 81–125; BP diastolic 50–83; PULSE 64–128; RESP 15–18; TEMP 36.3; O2SAT 99–100; BMI 21.2
--- NOTE | 2024-12-06 06:25 | P.ANESASSM_ITS ---
Pre-Anesthetic Assessment Height/Weight: Height 5 ft 8 in Weight 140 lb O2 Del Method Room Air 12/06/24 06:10 Preop Diagnosis: Spontaneous Operation Date: 12/06/24 07:00 Proposed Procedures p Dilation And Curettage (D&C) D&C(Not Applicable) - Tita Monzon MD Was Beta Jessica taken within 24 hours: N/A Was Clonidine taken within 24 hours: N/A Last intake: Intake Last Liquid Date 12/05/24 Last Liquid Time 19:00 Last Solid Date 12/05/24 Last Solid Time 22:00 Social No alcohol and No tobacco Exam alert, oriented x 3, clear to auscultation bilaterally and regular rate & rhythm Airway Cervical ROM: within normal limits Mallampati: Class IV Dentition: full Comments: Comments: Very small mouth opening Anesthetic Plan ASA status: 3 Anesthesia: General Other: Patient currently undergoing spontaneous No prior anesthesia history NPO since yesterday Patient states that she has not been bleeding but they found out on ultrasound This is her first Denies any pulmonary issues History of A-fib was originally on blood thinners and Cardizem but this has since been stopped. Follows with cardiology every 6 months Will obtain CBC this a.m. METs greater than 4 Plan for general anesthesia Medications/Allergies Allergies Allergy/AdvReac Type Severity Reaction Status Date / Time No Known Allergies Allergy Verified 05/01/24 14:15 [facility] Anesthesia Family History Mother Cancer breast Thyroid disease Denies family history of Diabetes Heart disease Chronic kidney disease (CKD) Bleeding disorder Stroke Social History Smoking and tobacco/nicotine status: current every day tobacco/nicotine user Alcohol intake: current Alcohol intake frequency: few times a month Substance/Drug Use: former Date of last use: May 30, 2023 Former substance use details: Marijuana - Gummy Lives independently: Yes Household members: friend(s) Housing: Apartment Number of children: 0 Female Reproductive History Date of last menstrual period: 09/22/24 Para: 0 Data Anesthesia Cardiac Studies: Echocardiogram 06/23/23 Cardiac Event Monitor 06/27/23
[2024-12-06] MEDS: ondansetron 2 mg/ML SDV 2 mL 4 MG IVP ×3 (06:42→11:18)
[2024-12-06 06:51] LABS: Hematocrit 39.0 % (36-47); Hemoglobin 13.60 g/dL (11.27-16.99); Mean Corpuscular HGB Conc 34.9 g/dL (30-55); Mean Corpuscular Hemoglobin 28.5 pg (27-33); Mean Corpuscular Volume 81.8 fl (85-98); Nucleated Red Blood Cells % 0 %; Platelet Count 227 10^3/cmm (157-399); Red Blood Count 4.77 10^6/uL (3.85-5.65); White Blood Count 7.13 10^3/uL (3.29-11.43)
--- NOTE | 2024-12-06 07:15 | P.HP_ITS ---
Providers/Chief Complaint 2 Primary Care Provider: ADOLFO Grady Chief Complaint: O034 History of Present Illness Raffaele Pascual is a 19 year old female G1, P0 who was diagnosed with a 9-week 4-day demise on first trimester OB ultrasound. After discussing the risk benefits and alternatives of watchful waiting, D&C, and medication, the patient decided she wanted to proceed with surgical D&C. Review of Systems 2 Narrative: No fever chills bleeding, cramping, no abdominal pain Medications/Allergies Allergies Allergy/AdvReac Type Severity Reaction Status Date / Time No Known Allergies Allergy Verified 12/06/24 06:51 PFSH Acute 2 PFSH: Family History Mother Cancer breast Thyroid disease Denies family history of Diabetes Heart disease Chronic kidney disease (CKD) Bleeding disorder Stroke Social History Smoking and tobacco/nicotine status: current every day tobacco/nicotine user Alcohol intake: current Alcohol intake frequency: few times a month Substance/Drug Use: former Date of last use: May 30, 2023 Former substance use details: Marijuana - Gummy Lives independently: Yes Household members: friend(s) Housing: Apartment Number of children: 0 Female Reproductive History: Date of last menstrual period: 09/22/24 Para: 0 Vitals/I&O/Wt Last Vital Signs O2 Del Method Room Air 12/06/24 06:10 Weight last 48 hrs Weight 63.503 kg Physical Exam 2 Narrative: Alert and oriented, heart regular rate and rhythm, lungs clear to auscultation bilaterally, abdomen is soft and nontender Data 12/06/24 06:30 A&P Assessment and plan 1. Incomplete miscarriage: Suction D&C PDMP PDMP Reviewed: Not Reviewed Attestations 2 Medical Necessity Statement*: Outpatient surgery and postoperative care Coding Level of Care Code Acute Code for Chg Fwd Diagnoses Incomplete miscarriage O03.4
[2024-12-06 07:17] LABS: Hematocrit 37.5 % (36-47); Hemoglobin 12.90 g/dL (11.27-16.99); Mean Corpuscular HGB Conc 34.4 g/dL (30-55); Mean Corpuscular Hemoglobin 28.0 pg (27-33); Mean Corpuscular Volume 81.3 fl (85-98); Nucleated Red Blood Cells % 0 %; Platelet Count 208 10^3/cmm (157-399); Red Blood Count 4.61 10^6/uL (3.85-5.65); White Blood Count 6.60 10^3/uL (3.29-11.43)
[2024-12-06] MEDS: lidocaine-epi 2% PF 1:200,000 20 mL SDV XX (08:00)
--- NOTE | 2024-12-06 08:13 | PM.OP ---
Operative Report Date of procedure: December 06, 2024 Pre-op diagnosis: Incomplete miscarriage Post-op diagnosis: Same Procedure done: Suction dilation and curettage of the uterus Specimens removed/disposition: Products of conception Pathology: Products of conception Surgeon: Tita Monzon MD Estimated blood loss (mL): 900 IV fluids (mL): 1,000 Complications: None Procedure: After informed consent the patient was taken to the OR where general anesthesia was administered. She was prepped and draped in normal sterile fashion in dorsal lithotomy position. Her vulva had a lot of greenish mucoid discharge so straight cath was performed and urine sample was sent for gonorrhea chlamydia. After vaginal prep a weighted speculum was inserted into the vagina and the anterior cervix was grasped with a tenaculum. The uterus was then sounded to 12 cm. Sharp curettage was then performed alternating with suction curettage. At 1 point there was tissue protruding from the os that was grasped with a ring forcep and easily teased out. This tissue was also sent to pathology. Patient began bleeding rather copiously and 800 mcg of Cytotec was placed rectally. Repeat sharp and suction curettage were performed till it was felt that the uterine cavity was free of any remaining debris. 20 mL of 2% lidocaine with epinephrine was injected circumferentially to perform a cervical block. The cervix was no longer bleeding when the tenaculum and weighted speculum were removed.
[2024-12-06 10:16] LABS: Hematocrit 30.3 % (36-47); Hemoglobin 10.20 g/dL (11.27-16.99); Mean Corpuscular HGB Conc 33.7 g/dL (30-55); Mean Corpuscular Hemoglobin 28.1 pg (27-33); Mean Corpuscular Volume 83.5 fl (85-98); Nucleated Red Blood Cells % 0 %; Platelet Count 189 10^3/cmm (157-399); Red Blood Count 3.63 10^6/uL (3.85-5.65); White Blood Count 12.49 10^3/uL (3.29-11.43)
[2024-12-06 10:38] LABS: Neisseria Gonorrhea NOT DETECTED (Negative)
--- NOTE | 2024-12-06 11:47 | PC.NURSE ---
Pt given 250mg of albumin by Anesthesia around 1130am.
--- NOTE | 2024-12-06 11:47 | PC.NURSE ---
Pt came to this nurse from PACU, pt with blood pressure running 90s/50's, pt symptomatic with dizziness,nausea, without vomiting, notified anesthesia. Pt with blood pressure continuing to run low 500ml bolus given per anesthesia
--- NOTE | 2024-12-06 12:29 | ANE.PACU2 ---
Inpatient post-anesthesia follow up: Airway intact: Yes Vital signs: Temperature 97.3 F Pulse Rate 84 Respiratory Rate 16 Blood Pressure 94/60 Pulse Oximetry 100 Oxygen Delivery Me thod Room Air Oxygen Flow Rate Fraction of Inspir ed Oxygen Hydration adequate: Yes Nausea and vomiting: Yes (treated in phase II, much improved) Pain level: 1 Mental status: Baseline
== END 2024-12-06 13:00 | disposition home or self-care (01) ==
PROVIDERS: Student in an Organized Health Care Education/Training Program; PCP Nurse Practitioner; Visit Provider Family Medicine
PROC: (CPT 58120; principal; 2024-12-06 07:00)
DX: O03.4 Incomplete spontaneous abortion without complication (principal); Z3A.09 9 weeks gestation of pregnancy; F17.200 Nicotine dependence, unspecified, uncomplicated; I48.91 Unspecified atrial fibrillation
CPT/HCPCS: 59812; 36415; 85025; 86850; 86900; 87491; 87591; 88305; J0131; J0330; J1100; J1885; J2250; J2371; J2405; J2704; J3010; J7030; J9999; P9045